=== PATIENT | male | born 2000 | race Two or more races ===

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

== ENCOUNTER 2023-07-28 11:52 | Outpatient (CLI) | payer OTHER | END 2023-07-28 11:58 | disposition home or self-care (01) | LOC: LAB 11:52 | PROVIDERS: ATTEND Internal Medicine Cardiovascular Disease | DX: E03.9 Hypothyroidism, unspecified (principal); E78.2 Mixed hyperlipidemia; E55.9 Vitamin D deficiency, unspecified; E11.9 Type 2 diabetes mellitus without complications; I10 Essential (primary) hypertension ==